=== PATIENT | female | born 1995 | race African-American/Black ===

== ENCOUNTER 2018-01-31 21:42 | Emergency (ER) | payer MEDICAID, OTHER ==
[~2018-01-31] VITALS: Ht 167.6 cm; Wt 59.0 kg
[~2018-01-31 21:42] MED LIST: PRENATAL VITS
[2018-02-01] MEDS ORDERED: TETANUS, DIPHTHERIA, PERTUSSIS VAC/PF 0.5ML (>7YR OLD) IM ONE (02:30)
[2018-02-01 02:45] VITALS: BP 98/87
== END 2018-02-01 03:20 | disposition home or self-care (01) ==
LOC: ER 21:42
DX: S60.416A Abrasion of right little finger, initial encounter (principal); Z91.018 Allergy to other foods; Y04.1XXA Assault by human bite, initial encounter; Y93.89 Activity, other specified; Y92.89 Other specified places as the place of occurrence of the external cause; Y99.8 Other external cause status
CPT/HCPCS: 29125; 73130; 81025; 90471; 90715; 99284

== ENCOUNTER 2019-01-20 03:23 | Emergency (ER) | payer MEDICAID, OTHER ==
[~2019-01-20] VITALS: Ht 170.2 cm; Wt 59.0 kg
[2019-01-20 05:25] VITALS: BP 112/72
== END 2019-01-20 05:28 | disposition home or self-care (01) ==
LOC: ER 03:23
DX: J02.9 Acute pharyngitis, unspecified (principal); R52 Pain, unspecified; R05 Cough; R03.0 Elevated blood-pressure reading, without diagnosis of hypertension
CPT/HCPCS: 99283

== ENCOUNTER 2019-04-04 23:32 | Emergency (ER) | payer MEDICAID ==
[~2019-04-04] VITALS: Ht 167.6 cm; Wt 57.0 kg
[2019-04-05 00:11] VITALS: BP 99/56
[2019-04-05 01:53] LABS: CLARITY URINE CLOUDY (CLEAR); COLOR URINE YELLOW (YELLOW); KETONES URINE 1+ (NEGATIVE); LEUKOCYTE ESTERASE URINE NEGATIVE (NEGATIVE); NITRITE URINE NEGATIVE (NEGATIVE); OCCULT BLOOD URINE NEGATIVE (NEGATIVE); PROTEIN URINE TRACE (NEGATIVE)
[2019-04-05] MEDS ORDERED: SODIUM CHLORIDE 0.9% 1,000 ML IV ONE (02:19)
[2019-04-05] MEDS ORDERED: KETOROLAC 30MG/ML VIAL IV ONE (02:30)
[2019-04-05] MEDS ORDERED: METOCLOPRAMIDE HCL 10MG/2ML VIAL IV ONE (02:30)
[2019-04-05] MEDS ORDERED: DIPHENHYDRAMINE 50MG/ML VIAL IV ONE (02:30)
[2019-04-05 02:34] LABS: CHLORIDE 108 mEq/L (98-107)
[2019-04-05 02:39] LABS: HEMATOCRIT. 38.5 % (36.0-48.0); HEMOGLOBIN. 12.8 g/dL (12.0-16.0); MEAN CORPUSCULAR HEMOGLOBIN 29.3 pg (28.0-32.0); MEAN CORPUSCULAR VOLUME 87.8 fL (81.0-99.0); MEAN PLATELET VOLUME 10.9 fl (7.4-10.4); PLATELET 157 x1000/uL (130-400); RED BLOOD CELL COUNT 4.38 mill/uL (4.2-5.4); RED CELL DISTRIBUTION WIDTH 13.3 % (11.6-14.6)
[2019-04-05 02:45] LABS: B-HCG QUANTITATIVE < 1 mIU/mL (<3)
[2019-04-05] MEDS ORDERED: FLUCONAZOLE 100MG TABLET PO ONE (04:15)
[2019-04-05] MEDS ORDERED: AZITHROMYCIN 500 MG TABLET PO ONE (04:15)
[2019-04-05] MEDS ORDERED: CEFTRIAXONE SODIUM 250 MG/VIAL IM ONE (04:15)
[2019-04-05 04:40] LABS: PLATELET ESTIMATE NORMAL
== END 2019-04-05 04:08 | disposition left against medical advice (07) ==
LOC: ER 23:32
DX: N89.8 Other specified noninflammatory disorders of vagina (principal); R51 Headache; R10.30 Lower abdominal pain, unspecified
CPT/HCPCS: 36415; 76830; 76856; 80053; 81003; 84702; 85025; 96361; 96374; 96375; 99284; J1200; J1885; J2765; J7030; Z7610